=== PATIENT | female | born 1965 | race African-American/Black ===

== ENCOUNTER 2021-11-22 10:55 | Outpatient (CLI) | payer BC, SELFPAY ==
--- NOTE | 2021-11-22 10:59 | STE_ITS ---
Stress Results Protocol: Ge Protocol Maximum Predicted HR: 166 bpm Target HR: 141 bpm % Maximum Predicted HR: 86 % DurationHeart Rate Stage (mm:ss) (bpm) BP Comment BASELINE 69 146/80 STAGE 1 3:00 99 182/90 STAGE 2 3:00 109 202/88 STAGE 3 3:00 142 230/100DYSPNEA/ NO CHEST PAIN RECOVERY 85 138/88 Stress Duration: 9:00 mm:ss Maximum Stress HR: 142 bpm Baseline Echocardiogram Findings Stress Echo Wall motion Data Resting WM Intermediate WM Stress WM ECHO/Stress Test Echo w/o Contrast Interpretation Summary Exercise stress echo. 56-year-old lady with a history of hypertension and hyperlipidemia. Stress protocol: Resting EKG demonstrates sinus rhythm with a rate of 71 bpm normal intervals ar e noted resting blood pressure is 146/80 mmHg. The patient exercised according to regular Ge gustavo col for total duration of 9 minutes patient completed stage III of the Ge protocol. The ma ximum heart rate attained 151 bpm which was 91% of maximum predicted heart rate the maximum work load was 10.1 metabolic equivalents. At rest there were no ST or T wave changes noted suggest ischemia and at peak exercise upsloping ST changes were noted with did not meet the criteria for isc hemia the test was terminated due to dyspnea. No chest pain was noted. The peak blood pressure was 230/100 which was a hypertensive response to exercise with a rate-pressure product of 32,430. Exercise stress echo. Resting echocardiogram demonstrated an ejection fraction of 60% with a peak eje ction fraction of 65% noted at peak exercise. There was thickening of all goins and reduction of left ventricular cavity size with no wall motion abnormalities to suggest ischemia. Conclusion: Normal exercise myocardial perfusion stress test at a high workload. Normal resting and stress echocardiographic imaging. Ordering Physician: Reynaldo Lorenzo Referring Physician: Reynaldo Lorenzo Performed By: Brodwolf, Tomasz, RCS
== END 2021-11-22 23:59 | disposition home or self-care (01) ==
LOC: CVS 10:58
PROVIDERS: PCP Internal Medicine; Referring Provider Internal Medicine Cardiovascular Disease; Visit Provider Internal Medicine Cardiovascular Disease
DX: R07.89 Other chest pain (principal); I10 Essential (primary) hypertension
CPT/HCPCS: 93017; 93350; Q9957; A4216

== ENCOUNTER 2022-10-11 15:55 | Emergency (ER) | payer BC, SELFPAY ==
[2022-10-11 15:56] VITALS: BP 152/78; PULSE 73; RESP 14; TEMP 36.8; O2SAT 100; BMI 33.1
[2022-10-11 16:43] VITALS: BP 139/79; PULSE 73; RESP 28; O2SAT 98
--- NOTE | 2022-10-11 17:14 | EKG12_ITS ---
Test Reason : PAIN Blood Pressure : / mmHG Vent. Rate : 077 BPM Atrial Rate : 077 BPM P-R Int : 154 ms QRS Dur : 086 ms QT Int : 384 ms P-R-T Axes : 042 -07 027 degrees QTc Int : 434 ms Normal sinus rhythm Abnormal ECG Confirmed by SOPHIE FUENTES MD ([id number]), publishing editor DIMITRI TEE ([id number]) on 10/12/2022 9:25:11 AM Referred By: ROSY Confirmed By:SOPHIE FUENTES MD
--- NOTE | 2022-10-11 17:16 | ED.VIS.CHEST ---
HPI History of Present Illness Chief Complaint: Chest Pain Detail of Chief Complaint: Chest pain that started yesterday Informant: patient Narrative Narrative: Patient presents the emergency department complaint chest pain that started yesterday. Patient states that she was seen at urgent care and referred to the emergency department. Patient thought that maybe she was coming down with a cold yesterday because she had some nasal congestion and some fatigue and just minimal cough. Patient then noticed that she was developing right-sided chest pain that is worse with cough and deep breath. Patient relates history of trying marijuana for the first time today before and having a coughing fit when she inhaled the first time. Patient denies recent travel or surgery. She has no heart history. Patient denies fevers. Prior Similar Symptoms: No PFSH PFSH Medical History Anxiety Depression Essential hypertension GERD (gastroesophageal reflux disease) Hyperlipidemia Migraine Obesity Obstructive sleep apnea Panic disorder Home Medications multivitamin 1 cap PO QAM 05/02/18 [History Last Taken Unknown] bupropion HCl 150 mg tablet,12 hr sustained-release 150 mg PO DAILY 10/29/21 [History Last Taken Unknown] cholecalciferol (vitamin D3) 25 mcg (1,000 unit) capsule 25 mcg PO DAILY 10/29/21 [History Last Taken Unknown] clonazepam 1 mg tablet 2 mg PO QDAY PRN Anxiety 10/29/21 [History Last Taken Unknown] lutein 40 mg capsule 40 mg PO DAILY 10/29/21 [History Last Taken Unknown] venlafaxine 75 mg capsule,extended release 24 hr 75 mg PO DAILY 10/29/21 [History Last Taken Unknown] losartan 100 mg tablet 100 mg PO DAILY #180 tabs 11/23/21 [Rx Last Taken Unknown] metoprolol succinate 100 mg tablet,extended release 24 hr 75 mg PO DAILY 07/07/22 [History Last Taken Unknown] hydrochlorothiazide 25 mg tablet 25 mg PO DAILY #90 tabs 08/01/22 [Rx Last Taken Unknown] Allergy/AdvReac Type Severity Reaction Status Date / Time amlodipine AdvReac edema Verified 10/11/22 15:56 Family History Father CAD (coronary artery disease) Diabetes Hypertension Mother Diabetes Hypertension Surgical History History of hysterectomy Hx of cholecystectomy Social History Smoking Status: Former smoker ROS ROS ED Review of Systems ROS Unobtainable: other Constitutional Constitutional ED: Reports lethargy; Denies chills, fever(s), sweats or weight loss Eyes Eyes: Denies blurry vision, change in vision or diplopia ENT ENT ED: Reports rhinorrhea; Denies sore throat Cardiovascular Cardiovascular: Reports chest pain; Denies orthopnea or racing heartbeat Respiratory/Chest Respiratory/Chest: Reports cough; Denies dyspnea, dyspnea on exertion, orthopnea or sputum Gastrointestinal Gastrointestinal: Denies abdominal pain, diarrhea, nausea or vomiting Genitourinary Genitourinary ED: Denies dysuria, hematuria or urinary frequency Musculoskeletal Musculoskeletal: Denies arthralgias, back pain, myalgias or neck pain Integumentary Denies abscess, Abrasions or rash Neurologic Neurologic: Denies headache(s) or weakness Psychiatric Psychiatric: Denies anxiety, depression or suicidal thoughts Endocrine Endocrinology: Denies polydipsia, polyphagia or polyuria Hematologic/Lymphatic Hematologic/Lymphatic: Denies easy bleeding, easy bruising or lymphadenopathy Allergic/Immunologic Allergic/Immunologic ED: Denies mouth swelling, tongue swelling or urticaria EXAM Physical Exam Const Vital Signs: 10/11/22 15:56 10/11/22 16:43 10/11/22 16:43 Temperature 98.3 F Temperature Source Temporal Pulse Rate 73 73 Respiratory Rate 14 28 H Respiratory Effort Normal Blood Pressure 152/78 H 139/79 H Blood Pressure Mean 102 99 Pulse Ox 100 98 Oxygen Delivery Method Room Air Room Air 10/11/22 17:23 10/11/22 18:05 Temperature Temperature Source Pulse Rate 73 Respiratory Rate 16 Respiratory Effort Blood Pressure 140/73 H Blood Pressure Mean 95 Pulse Ox 98 99 Oxygen Delivery Method Room Air Room Air Positive well nourished and well developed General Appearance ED: well developed and NAD HEENT Reports TM's clear and moist mucous membranes normocephalic and atraumatic; Negative for trauma or tenderness Tympanic Membrane ED: Yes TM's clear Eyes PERRL and EOMs intact bilaterally General Eye ED: Negative for pale conjunctiva or scleral icterus Neck no lymphadenopathy, supple and no JVD General: Negative for tenderness Chest Wall inspection of chest normal Chest Narrative: Tenderness to palpation over the right anterior chest wall that seems to reproduce her pain. Chest: Negative for tenderness Resp normal respiratory effort and clear to auscultation bilaterally Effort and Inspection: Negative for respiratory distress or pain with movement Auscultation: Negative for rhonchi, wheezes or diminished lung sounds Cardio regular rate, regular rhythm, S1 normal heart sound, S2 normal heart sound and no murmurs Peripheral Pulses: pulses 2+ throughout GI normal to inspection, nondistended, normoactive bowel sounds, soft to palpation, non-tender, non-distended and no masses Back/Spine no CVA tenderness and no thoracic nor lumbar tenderness Extremity normal to inspection General Extremety ED: Negative for edema General Extremity: Negative for edema Neuro oriented x3, CN's II-XII intact bilaterally, no sensory deficits noted and gait normal Sensorium / Orientation: awake, alert, oriented to person, oriented to place and oriented to time Motor Exam: strength 5/5 throughout and strength abnormal Psych mental status grossly normal Skin no rashes or lesions noted and no wounds Heart Score History: Slightly/Non-Suspicious ECG: Nonspecific Repolarization Age: >45 - <65 years Risk Factors: 1 or 2 Risk Factors Troponin: </= Normal Limit Score: 3 MDM MDM MDM Narrative Medical decision making narrative: IV line established on arrival. Patient did not anything for pain. EKG obtained showed a sinus rhythm with a rate of [address] changes. Troponin was normal. D-dimer was normal. Chest x-ray was normal. At this point I do not feel she is having acute coronary syndrome. Her chest pain is reproducible. I suspect chest wall strain. Heart score was a 3. Patient has had continuous pain since yesterday with a normal high-sensitivity troponin. Pain is reproducible. Patient advised to follow-up with her primary care physician within next 5 to 7 days. She will use anti-inflammatory at home. She does not want a thing stronger for pain. Lab Data Attestation: I reviewed the patient's lab results. Labs: Laboratory Results - last 24 hr 10/11/22 10/11/22 10/11/22 17:28 17:28 17:28 WBC 8.8 RBC 4.48 Hgb 13.6 Hct 40.5 MCV 90.4 MCH 30.4 MCHC 33.6 RDW Std Deviation 42.9 RDW Coeff of Sunita 13.1 Plt Count 274 MPV 9.7 Immature Gran % (Auto) 0.500 Neut % (Auto) 59.4 Lymph % (Auto) 31.1 [place] % (Auto) 7.0 Eos % (Auto) 1.7 Baso % (Auto) 0.3 Absolute Neuts (auto) 5.2 Absolute Lymphs (auto) 2.74 Nucleated RBC % 0 D-Dimer Quant (PE/DVT) < 0.27 L Sodium 138 Potassium 3.9 Chloride 105 Carbon Dioxide 27.0 Anion Gap 6 BUN 10 Creatinine 0.75 Estim Creat Clear Calc 91.65 Est GFR (MDRD) Af Amer 103 Est GFR (MDRD) Non-Af 85 BUN/Creatinine Ratio 13.3 Glucose 109 H Calcium 9.3 Troponin I High Sens 16 Radiography Diagnostic Testing: Clinical Impression(s) from Imaging Studies Chest X-Ray 10/11/22 17:37 IMPRESSION: 1. No evidence of acute cardiopulmonary process Electronically Signed: Darrell Dias MD at 18:04 EST Reading Location ID and State: [facility] [place] Tel , Service support , 1 view chest x-ray obtained interpreted by myself no acute disease process. Radiology in agreement. EKG Initial EKG: Attestation: I personally reviewed and interpreted this EKG as follows: Comments: Sinus rhythm with a ventricular rate of 77 bpm with no acute ST segment changes Discharge Plan Triage Chief Complaint: Chest Pain ED Provider: Adrián Stephenson Dx/Rx/DC Orders Clinical Impression: Chest pain Instructions: ED Chest Pain, Uncertain Cause, ED Chest Wall Strain Prescriptions: No Action multivitamin capsule capsule 1 cap PO QAM clonazepam 1 mg tablet 2 mg PO QDAY PRN (Reason: Anxiety) venlafaxine 75 mg capsule,extended release 24hr 75 mg PO DAILY cholecalciferol (vitamin D3) 25 mcg (1,000 unit) capsule 25 mcg PO DAILY lutein 40 mg capsule 40 mg PO DAILY Rx Instructions: administer with meals bupropion HCl 150 mg tablet sustained-release 12 hr 150 mg PO DAILY metoprolol succinate 100 mg tablet extended release 24 hr 75 mg PO DAILY losartan 100 mg tablet 100 mg PO DAILY Qty: 180 3RF hydrochlorothiazide 25 mg tablet 25 mg PO DAILY Qty: 90 3RF Primary Care Provider: Gladys Low: Gladys Low MD [Primary Care Provider] - 5-7 Days Disposition Disposition: Home, Self Care
[2022-10-11 17:23] VITALS: O2SAT 98
[2022-10-11] MEDS: Aspirin 81 MG TAB.CHEW 324 MG PO (17:29)
[2022-10-11] MEDS: 0.9% Normal Saline 1,000 ML 150 ML IV (17:29)
--- NOTE | 2022-10-11 17:37 | RAD_ITS ---
INDICATION: chest pain EXAMINATION/TECHNIQUE: X-RAY - XR Chest 1 View COMPARISON: No previous relevant examinations available for comparison.. FINDINGS: LIFE-SUPPORT AND LINES: 1. None HEART AND VESSELS: The cardiac silhouette, pulmonary vasculature have normal appearance. No evidence of congestive failure. LUNGS AND PLEURAL SPACES: Lungs are clear. No focal infiltrate, consolidation or effusions. No evidence of pneumothorax. Scattered granulomatous changes are present. MEDIASTINUM AND HILAR REGIONS: No masses adenopathy noted. No areas of calcification. Visualized upper airway is normal in position. BONY ELEMENTS: No acute bony changes noted. RAD/Chest 1 View (Portable) IMPRESSION: 1. No evidence of acute cardiopulmonary process Electronically Signed: Darrell Dias MD at 18:04 EST ,
[2022-10-11 17:51] LABS: Absolute Lymphocyte Count 2.74 X10^3/uL (0.83-4.51); Absolute Neutrophil Count 5.2 X10^3/uL (2.0-7.7); Basophil# 0.03 X10^3/uL; Basophil% 0.3 % (0-1); Eosinophil# 0.15 X10^3/uL; Eosinophils% 1.7 % (0-5); Hematocrit 40.5 % (37-47); Hemoglobin 13.6 g/dL (12.0-15.0); Lymphocyte # 2.74 X10^3/ul (0.83-4.51); Lymphocyte % 31.1 % (19-41); Mean Corp Hgb Conc 33.6 g/dL (32-36); Mean Corpuscular Hgb 30.4 pg (27.0-32.0); Mean Corpuscular Volume 90.4 fL (81-99); Mean Platelet Vol. 9.7 fl (6.2-12.0); Monocyte# 0.62 X10^3/uL; NRBC Flagged by Analyzer 0 % (0-5); Neutrophil # 5.22 X10^3/uL (2.7-7.7); Neutrophil % 59.4 % (47-70); Platelet Count 274 K/mm3 (150-450); RBC Distribution Width CV 13.1 % (11.6-14.6); RBC Distribution Width SD 42.9 fl (35.1-43.9); Red Blood Count 4.48 M/mm3 (4.2-5.4); White Blood Count 8.8 K/mm3 (4.4-11.0)
[2022-10-11 18:05] VITALS: BP 140/73; PULSE 73; RESP 16; O2SAT 99
[2022-10-11 18:13] LABS: Anion Gap 6 (5-15); BUN 10 mg/dL (7-18); BUN/Creat Ratio 13.3 RATIO (10-20); Calcium,Total 9.3 mg/dL (8.5-10.1); Chloride 105 mmol/L (98-107); Creatinine, Serum 0.75 mg/dL (0.55-1.02); EST Glomerular Filtration Rate 85 mL/min (>60); Est Glom Filt Rate - Afr Amer 103 mL/min (>60); Estimated Creatinine Clearance 91.65 ml/min; Glucose 109 mg/dL (74-106); Potassium 3.9 mmol/L (3.5-5.1); Sodium Level 138 mmol/L (136-145); Troponin-I HS (w/2H Reflex) 16 pg/mL (3.0-54.0)
[2022-10-11 18:25] LABS: D-Dimer Quantitative (DVT/PE) < 0.27 FEU/ug/m (0.27-0.49)
[2022-10-11 19:00] VITALS: BP 136/80; PULSE 74; RESP 25; O2SAT 97
[2022-10-11 19:34] LABS: Reflex Troponin-HS? (from REC) Y
== END 2022-10-11 19:16 | disposition home or self-care (01) ==
PROVIDERS: Emergency Provider Emergency Medicine; PCP Internal Medicine; Visit Provider Emergency Medicine
DX: R07.9 Chest pain, unspecified (principal); E78.5 Hyperlipidemia, unspecified; I10 Essential (primary) hypertension; R09.81 Nasal congestion; Z20.822 Contact with and (suspected) exposure to COVID-19; R53.83 Other fatigue; R05.9 Cough, unspecified; E66.9 Obesity, unspecified; Z79.899 Other long term (current) drug therapy; Z87.891 Personal history of nicotine dependence
CPT/HCPCS: 71045; 80048; 84484; 85025; 85379; 87428; 93005; 96360; 96361; 99284; J7030; A4216

== ENCOUNTER → 2022-11-07 | Outpatient (CLI) | payer BC, SELFPAY ==
[2022-11-07 10:49] LABS: Anion Gap 6 (5-15); BUN 15 mg/dL (7-18); BUN/Creat Ratio 14.7 RATIO (10-20); Calcium,Total 9.2 mg/dL (8.5-10.1); Chloride 102 mmol/L (98-107); Creatinine, Serum 1.02 mg/dL (0.55-1.02); EST Glomerular Filtration Rate 60 mL/min (>60); Est Glom Filt Rate - Afr Amer 72 mL/min (>60); Glucose 141 mg/dL (74-106); Potassium 3.3 mmol/L (3.5-5.1); Sodium Level 137 mmol/L (136-145)
== END | disposition home or self-care (01) ==
LOC: LAB 09:51
PROVIDERS: PCP Internal Medicine; Referring Provider Internal Medicine Cardiovascular Disease; Visit Provider Internal Medicine Cardiovascular Disease
DX: I10 Essential (primary) hypertension (principal)
CPT/HCPCS: 36415; 80048

== ENCOUNTER → 2022-12-09 | Outpatient (CLI) | payer BC, SELFPAY ==
[2022-12-09 16:49] LABS: Anion Gap 7 (5-15); BUN 12 mg/dL (7-18); BUN/Creat Ratio 11.4 RATIO (10-20); Calcium,Total 9.3 mg/dL (8.5-10.1); Chloride 103 mmol/L (98-107); Creatinine, Serum 1.05 mg/dL (0.55-1.02); EST Glomerular Filtration Rate 58 mL/min (>60); Est Glom Filt Rate - Afr Amer 70 mL/min (>60); Glucose 201 mg/dL (74-106); Potassium 3.4 mmol/L (3.5-5.1); Sodium Level 139 mmol/L (136-145)
== END | disposition home or self-care (01) ==
LOC: LAB 15:40
PROVIDERS: PCP Internal Medicine; Referring Provider Internal Medicine Cardiovascular Disease; Visit Provider Internal Medicine Cardiovascular Disease
DX: E87.6 Hypokalemia (principal)
CPT/HCPCS: 36415; 80048